=== PATIENT | male | born 1985 | race Caucasian/White ===

== ENCOUNTER 2019-05-19 04:26 | Emergency (ER) | payer OTHER ==
[~2019-05-19] VITALS: Ht 180.3 cm; Wt 93.7 kg
[2019-05-19 04:30] VITALS: BP 153/108; Ht 180.3 cm; Wt 93.7 kg
== END 2019-05-19 05:30 | disposition home or self-care (01) ==
LOC: ED 04:26 → EDSEX 04:26 → ED 05:30
DX: T15.01XA Foreign body in cornea, right eye, initial encounter (principal); I10 Essential (primary) hypertension; K21.9 Gastro-esophageal reflux disease without esophagitis